=== PATIENT | male | born 1975 | race Caucasian/White ===

== ENCOUNTER 2018-06-23 13:40 | Outpatient (REF) | payer MEDICAID, SELFPAY ==
[2018-06-23 21:53] LABS: ALT 66 U/L (12-78); AST 37 U/L (15-37); Albumin 3.9 g/dL (3.4-5.0); Alkaline Phosphatase 72 U/L (46-116); Anion Gap 7.7 mmol/L (3-11); BUN 15 mg/dL (7-18); Bilirubin, Total 0.3 mg/dL (0.2-1.0); CO2 30.3 mmol/L (21.0-32.0); CREATININE 1.16 mg/dL (0.70-1.30); Chloride 104 mmol/L (98-107); Cholesterol 203 mg/dL (50-200); Glucose 64 mg/dL (70-100); HDL Cholesterol 46 mg/dL (40-60); LDL CHOLESTEROL 134 mg/dL (<100); Potassium 4.3 mmol/L (3.5-5.1); Sodium 142 mmol/L (136-145); Total Protein 7.8 g/dL (6.4-8.2); Triglyceride 149 mg/dL (30-150)
== END 2018-06-23 14:00 ==
LOC: NCHCN 13:40
PROVIDERS: PCP Family Medicine; Visit Provider Family Medicine
DX: R79.89 Other specified abnormal findings of blood chemistry (principal); F32.9 Major depressive disorder, single episode, unspecified; E78.5 Hyperlipidemia, unspecified; E66.9 Obesity, unspecified
CPT/HCPCS: 80053; 80061; 83721

== ENCOUNTER 2019-04-29 08:39 | Outpatient (REF) | payer MEDICAID, SELFPAY ==
[2019-04-30 05:17] LABS: Abs Immature Grans 0.02 k/cumm (0.0-0.09); Absolute Basophil Count 0.01 k/cumm (0.0-0.2); Absolute Eosinophil Count 0.19 k/cumm (0.0-0.7); Absolute Lymphocyte Count 1.32 k/cumm (1.2-3.4); Absolute Monocyte Count 0.48 k/cumm (0.11-0.7); Absolute Neutrophil Count 4.36 k/cumm (1.2-6.7); Basophils % 0.2; HCT 43.4 % (40.0-50.0); Immature Grans % 0.3; Lymphocytes % 20.7; Mean Corp. HGB Concentration 32.3 g/dL (32.0-36.0); Mean Corpuscular Hemoglobin 28.6 pg (27.0-33.0); Mean Corpuscular Volume 88.8 fL (80-95); Mean Platelet Volume 10.2 fL (8.0-11.0); Monocytes % 7.5; Neutrophils % 68.3; Platelet Count 221 x1000/uL (130-400); RBC 4.89 m/cumm (4.50-6.00); RBC Distribution Width 13.6 % (11.8-14.1); White Blood Cell Count 6.38 k/cumm (4.4-10.8)
[2019-04-30 05:53] LABS: ALT 51 U/L (16-63); AST 31 U/L (15-37); Albumin 3.8 g/dL (3.4-5.0); Alkaline Phosphatase 68 U/L (46-116); Anion Gap 9.6 mmol/L (3-11); BUN 11 mg/dL (7-18); Bilirubin, Total 0.3 mg/dL (0.2-1.0); CO2 25.4 mmol/L (21.0-32.0); CREATININE 0.99 mg/dL (0.70-1.30); Calcium 8.6 mg/dL (8.5-10.1); Calculated LDL 177 mg/dL; Chloride 104 mmol/L (98-107); Cholesterol 259 mg/dL (50-200); Glucose 89 mg/dL (70-100); HDL Cholesterol 46 mg/dL (40-60); Potassium 4.3 mmol/L (3.5-5.1); Sodium 139 mmol/L (136-145); TSH (W/Ref FT4) 1.61 uIU/mL (0.36-3.74); Total Protein 7.6 g/dL (6.4-8.2); Triglyceride 182 mg/dL (30-150)
== END 2019-04-29 08:59 ==
LOC: NCHCN 08:39
PROVIDERS: PCP Family Medicine; Visit Provider Family Medicine
DX: R21 Rash and other nonspecific skin eruption (principal); F32.9 Major depressive disorder, single episode, unspecified; R79.89 Other specified abnormal findings of blood chemistry; Z51.89 Encounter for other specified aftercare
CPT/HCPCS: 80053; 80061; 84443; 85025

== ENCOUNTER 2019-08-13 10:48 | Outpatient (REF) | payer MEDICAID, SELFPAY ==
[2019-08-13 22:39] LABS: Vitamin D 25 Total 31.5 ng/ml (30-100)
[2019-08-13 22:41] LABS: Vitamin B12 691 pg/mL (193-986)
== END 2019-08-13 11:08 ==
LOC: NCHCN 10:48
PROVIDERS: PCP Family Medicine; Visit Provider Nurse Practitioner Community Health
DX: F32.9 Major depressive disorder, single episode, unspecified (principal); E66.9 Obesity, unspecified
CPT/HCPCS: 82306; 82607

== ENCOUNTER 2020-02-10 09:32 | Outpatient (REF) | payer MEDICAID, SELFPAY ==
[2020-02-10 21:36] LABS: HCT 42.5 % (40.0-50.0); HGB 13.6 g/dL (13.5-17.5); Mean Corpuscular Hemoglobin 28.2 pg (27.0-33.0); Platelet Count 232 x1000/uL (130-400); RBC 4.83 m/cumm (4.50-6.00); RBC Distribution Width 13.2 % (11.8-14.1); White Blood Cell Count 5.63 k/cumm (4.4-10.8)
[2020-02-10 21:39] LABS: ALT 54 U/L (16-63); AST 29 U/L (15-37); Albumin 3.9 g/dL (3.4-5.0); Alkaline Phosphatase 67 U/L (46-116); Anion Gap 7.2 mmol/L (3-11); BUN 13 mg/dL (7-18); Bilirubin, Total 0.4 mg/dL (0.2-1.0); CO2 29.8 mmol/L (21.0-32.0); CREATININE 1.21 mg/dL (0.70-1.30); Calcium 8.8 mg/dL (8.5-10.1); Calculated LDL 189 mg/dL (<100); Chloride 103 mmol/L (98-107); Cholesterol 256 mg/dL (<200); Glucose 91 mg/dL (74-106); HDL Cholesterol 41 mg/dL (40-60); Potassium 4.3 mmol/L (3.5-5.1); Sodium 140 mmol/L (136-145); Total Protein 7.6 g/dL (6.4-8.2); Triglyceride 130 mg/dL (<150)
== END 2020-02-10 09:52 ==
LOC: NCHCN 09:32
PROVIDERS: PCP Family Medicine; Visit Provider Nurse Practitioner Community Health
DX: E78.70 Disorder of bile acid and cholesterol metabolism, unspecified (principal); R79.89 Other specified abnormal findings of blood chemistry; F32.9 Major depressive disorder, single episode, unspecified
CPT/HCPCS: 80053; 80061; 85027

== ENCOUNTER 2021-01-18 10:51 | Outpatient (REF) | payer MEDICAID, SELFPAY ==
[2021-01-18 22:02] LABS: Anion Gap 7.4 mmol/L (3-11); BUN 14 mg/dL (7-18); CO2 29.6 mmol/L (21.0-32.0); CREATININE 1.1 mg/dL (0.70-1.30); Calculated LDL 147 mg/dL (<100); Chloride 103 mmol/L (98-107); Cholesterol 215 mg/dL (<200); Glucose 80 mg/dL (74-106); HDL Cholesterol 37 mg/dL (40-60); Potassium 4.7 mmol/L (3.5-5.1); Sodium 140 mmol/L (136-145); Triglyceride 155 mg/dL (<150)
== END 2021-01-18 10:52 | disposition home or self-care (01) ==
LOC: NCHCN 10:51
PROVIDERS: PCP Family Medicine; Visit Provider Nurse Practitioner Community Health
DX: E78.70 Disorder of bile acid and cholesterol metabolism, unspecified (principal); Z68.34 Body mass index [BMI] 34.0-34.9, adult
CPT/HCPCS: 80048; 80061

== ENCOUNTER 2023-12-31 09:44 | Outpatient (REF) | payer MEDICAID, SELFPAY ==
[2023-12-31 15:23] LABS: Hemoglobin A1C 5.7 % (<5.7)
[2023-12-31 15:34] LABS: ALT 47 U/L (16-63); AST 32 U/L (15-37); Albumin 3.7 g/dL (3.4-5.0); Alkaline Phosphatase 73 U/L (46-116); Anion Gap 7.5 mmol/L (3-11); BUN 15 mg/dL (7-18); Bilirubin, Total 0.3 mg/dL (0.2-1.0); CO2 30.5 mmol/L (21.0-32.0); CREATININE 1.1 mg/dL (0.70-1.30); Calcium 8.8 mg/dL (8.5-10.1); Calculated LDL 150 mg/dL (<100); Chloride 106 mmol/L (98-107); Cholesterol 247 mg/dL (<200); Estimated GFR 83.84 (mL/min/1.73m2); Glucose 89 mg/dL (74-106); HDL Cholesterol 42 mg/dL (40-60); Potassium 4.2 mmol/L (3.5-5.1); Sodium 144 mmol/L (136-145); Total Protein 7.9 g/dL (6.4-8.2); Triglyceride 278 mg/dL (<150); Vitamin B12 579 pg/mL (193-986)
== END 2023-12-31 09:45 | disposition home or self-care (01) ==
LOC: NCHCN 09:44
PROVIDERS: PCP Family Medicine; Visit Provider Nurse Practitioner Family
DX: E66.9 Obesity, unspecified (principal)
CPT/HCPCS: 80053; 80061; 82607; 83036

== ENCOUNTER 2024-11-30 10:18 | Outpatient (REF) | payer MEDICAID, SELFPAY ==
[2024-11-30 15:22] LABS: Hemoglobin A1C 5.7 % (<5.7)
[2024-11-30 15:25] LABS: ALT 118 U/L (16-63); AST 76 U/L (15-37); Albumin 4.5 g/dL (3.4-5.0); Alkaline Phosphatase 95 U/L (46-116); Anion Gap 8.4 mmol/L (3-11); BUN 11 mg/dL (7-18); Bilirubin, Total 0.6 mg/dL (0.2-1.0); CO2 31.6 mmol/L (21.0-32.0); CREATININE 1.1 mg/dL (0.70-1.30); Calcium 9.8 mg/dL (8.5-10.1); Calculated LDL 230 mg/dL (<100); Chloride 102 mmol/L (98-107); Cholesterol 326 mg/dL (<200); Estimated GFR 83.84 (mL/min/1.73m2); Glucose 83 mg/dL (74-106); HDL Cholesterol 64 mg/dL (>or=40); Potassium 3.9 mmol/L (3.5-5.1); Sodium 142 mmol/L (136-145); Total Protein 9.9 g/dL (6.4-8.2); Triglyceride 163 mg/dL (<150)
== END 2024-11-30 10:19 | disposition home or self-care (01) ==
LOC: NCHCN 10:18
PROVIDERS: PCP Family Medicine; Visit Provider Nurse Practitioner Family
DX: R73.03 Prediabetes (principal); E66.9 Obesity, unspecified; R79.9 Abnormal finding of blood chemistry, unspecified
CPT/HCPCS: 80053; 80061; 83036

== ENCOUNTER 2025-03-10 07:57 | Outpatient (REF) | payer MEDICAID, SELFPAY ==
[2025-03-10 17:27] LABS: Calculated LDL 109 mg/dL (<100); Cholesterol 180 mg/dL (<200); HDL Cholesterol 51 mg/dL (>or=40); Triglyceride 103 mg/dL (<150)
== END 2025-03-10 07:58 | disposition home or self-care (01) ==
LOC: NCHCN 07:57
PROVIDERS: PCP Family Medicine; Visit Provider Nurse Practitioner Family
DX: E78.5 Hyperlipidemia, unspecified (principal)
CPT/HCPCS: 80061